=== PATIENT | male | born 1995 | race African-American/Black ===

== ENCOUNTER 2024-10-06 09:33 | Emergency (ER) | payer OTHER ==
[~2024-10-06] VITALS: Ht 188 cm; Wt 104.3 kg
[2024-10-06] MEDS ORDERED: LEVE500T9 PO (09:56)
[2024-10-06] MEDS: IV NS 0.9% 1,000 ML BAG IV ONE (10:17)
[2024-10-06] MEDS: LEVETIRACETAM (500MG) 1,500 MG in IV NS 0.9% 85 ML IV SCH (10:19)
[2024-10-06 11:42] VITALS: BP 117/85; TEMP 98.5; O2SAT 100
== END 2024-10-06 11:52 ==
LOC: ER 09:51
DX: Z02.89 Encounter for other administrative examinations (principal); G40.909 Epilepsy, unspecified, not intractable, without status epilepticus; F15.10 Other stimulant abuse, uncomplicated; F17.200 Nicotine dependence, unspecified, uncomplicated; J45.909 Unspecified asthma, uncomplicated; Z60.2 Problems related to living alone
CPT/HCPCS: 99284; 96365; J7030 ×2; J1953